=== PATIENT | male | born 1995 | race Caucasian/White ===

== ENCOUNTER 2018-11-03 03:59 | Emergency (ER) | payer OTHER ==
[2018-11-03] MEDS ORDERED: Ondansetron ODT 8 MG TAB ONE (04:08)
== END 2018-11-03 04:50 ==
LOC: ERS 03:59
DX: F10.129 Alcohol abuse with intoxication, unspecified (principal); F41.9 Anxiety disorder, unspecified; F32.9 Major depressive disorder, single episode, unspecified; F17.210 Nicotine dependence, cigarettes, uncomplicated
CPT/HCPCS: 99283